=== PATIENT | female | born 1975 | race Caucasian/White ===

== ENCOUNTER 2017-05-25 07:09 | Emergency (ER) | payer MEDICAID ==
[2017-05-25 07:13] VITALS: BP 107/65; PULSE 88; RESP 14; TEMP 98.6; O2SAT 98
--- NOTE | 2017-05-25 07:20 | EDPHY ---
H & P Stated Complaint: rib pain when being arrested Time Seen by Provider: 05/25/17 07:17 HPI/ROS: CHIEF COMPLAINT: Rib pain HISTORY OF PRESENT ILLNESS: The patient presents to the ED with complaints of left-sided rib pain. The patient was in the emergency department last night and registered under a different name. She was here after using methamphetamine. She reportedly was discharged from the emergency department and went and slept on private property where she was found this morning. The police were contacted. She reportedly developed left-sided rib pain which prompted her transfer back to the emergency department. The patient denies history of fall or trauma. She believes that her ribs hurt secondary to sleeping on the hard ground. REVIEW OF SYSTEMS: A comprehensive 10 point review of systems is otherwise negative aside from elements mentioned in the history of present illness. Source: Patient Exam Limitations: No limitations - Personal History LMP (Females 10-55): Unknown Current Tetanus/Diphtheria Vaccine: Unsure Current Tetanus Diphtheria and Acellular Pertussis (TDAP): Unsure - Medical/Surgical History Hx Asthma: No Hx Chronic Respiratory Disease: No Hx Diabetes: No Hx Cardiac Disease: No Hx Renal Disease: No Hx Cirrhosis: No Hx Alcoholism: No Hx HIV/AIDS: No Hx Splenectomy or Spleen Trauma: No Other PMH: DEPRESSION,ANXIETY - Social History Smoking Status: Never smoked - Physical Exam Exam: General Appearance: Alert, no distress Eyes: Pupils equal and round no pallor or injection ENT, Mouth: Mucous membranes moist Respiratory: There are no retractions, lungs are clear to auscultation, tenderness to palpation left anterior chest wall, no subcutaneous emphysema Cardiovascular: Regular rate and rhythm Gastrointestinal: Abdomen is soft and nontender, no masses, bowel sounds normal Neurological: A&O, normal motor function, normal sensory exam, normal cranial nerves Skin: Warm and dry, no rashes, multiple tattoos Musculoskeletal: Neck is supple nontender Extremities: symmetrical, full range of motion Constitutional: Initial Vital Signs Temperature (C) 37 C 05/25/17 07:11 Heart Rate 88 05/25/17 07:11 Respiratory Rate 14 05/25/17 07:11 Blood Pressure 107/65 05/25/17 07:11 O2 Sat (%) 98 05/25/17 07:11 O2 Delivery Mode Room Air Allergies/Adverse Reactions: No Known Allergies Allergy (Verified 07/02/14 18:20) Home Medications: Medication Instructions Recorded FLUoxetine [Prozac 20 MG (RX)] 40 mg PO DAILY 12/06/11 clonazePAM [Klonopin (RX)] 1 mg 03/17/13 clonazePAM [klonoPIN (*)] 1 mg PO BID PRN #18 tab 07/02/14 Medical Decision Making - Diagnostics Imaging Results: Chest x-ray PA/lateral: Images reviewed by myself, negative for rib fracture, infiltrate, hemothorax or pneumothorax. ED Course/Re-evaluation: The patient presents to the ED with complaints of left-sided rib pain. The patient's vital signs are stable. Her pain is reproducible in nature. The patient's chest x-ray demonstrates no evidence of obvious rib fracture, pneumothorax or hemothorax. The patient will be treated conservatively. She is advised to use ibuprofen as needed for pain. She should return to the ED for worsening symptoms or other concerns. Differential Diagnosis: Differential diagnosis considered includes rib fracture, pneumothorax, hemothorax, chest wall contusion Departure - Departure Disposition: Home, Routine, Self-Care Clinical Impression: Chest wall pain Condition: Good Instructions: Chest Wall Pain (ED) Additional Instructions: 1. Take Ibuprofen or Motrin 600 mg by mouth three times a day. 2. Your chest x-ray demonstrates no evidence of a rib fracture or obvious disease. 3. Please follow up with [facility] as recommended. Referrals: [facility],. [Clinic] - As per Instructions
== END 2017-05-25 08:07 | disposition home or self-care (01) ==
LOC: EDUNIT#
DX: R07.89 Other chest pain (principal)

== ENCOUNTER 2017-05-27 14:01 | Emergency (ER) | payer MEDICAID ==
--- NOTE | 2017-05-27 14:15 | EDPHY ---
H & P Smoking Status: Never smoked Time Seen by Provider: 05/27/17 14:05 HPI/ROS: CHIEF COMPLAINT: Suicidal ideation HISTORY OF PRESENT ILLNESS: Patient tells me she was at the [facility] last night for mental health. Today she went to the [facility] and ring the smith for the inpatient behavioral health unit and said "I need ambulance for my mental health issues" and 911 was called. She was brought in by police on a mental health hold for suicidal ideation with plan to jump off a building. Decreased oral intake but otherwise no medical complaints except she feels she might be dehydrated. REVIEW OF SYSTEMS: Eye: no change in vision ENT: no sore throat Cardiac: no chest pain or syncope Pulmonary: no cough or SOB Abdomen: no vomiting, diarrhea, abdominal pain Musculoskeletal: no back pain Skin: no rash Neuro: no headache Constitutional: no fever : no urinary symptoms A comprehensive 10 point review of systems is otherwise negative aside from elements mentioned in the history of present illness. PAST MEDICAL HISTORY: Cholecystectomy, hysterectomy, depression Social history: Tobacco smoker General Appearance: Alert and conversant, cooperative. Eyes: No scleral icterus. ENT, Mouth: Normal mucous membranes. Respiratory: Normal respiratory effort, breath sounds equal, lungs are clear to auscultation. Cardiovascular: Regular rate and rhythm. Gastrointestinal: Abdomen is soft and non tender. Neurological: Alert and oriented x3. Normally conversant. Face symmetric, normal movement and sensation in all extremities. Skin: Warm and dry, no rashes. Musculoskeletal: No peripheral edema and no joint swelling. Psychiatric: Patient is cooperative, flat affect, see HPI. Emergency Department course/MDM: Arrives on a mental health hold. Labs and psychiatric evaluation. Hysterectomy so no test ordered. 1629: The patient had a medical screening evaluation performed. There does not appear to be an acute emergent medical or surgical condition which would preclude psychiatric evaluation at this time. Mental health evaluation is requested at this time. 2100: Signed out to [facility], plan for psych placement. (Sidney Esteves) Constitutional: Initial Vital Signs Temperature (C) 37.0 C 05/27/17 14:21 Heart Rate 118 H 05/27/17 14:21 Respiratory Rate 16 05/27/17 14:21 Blood Pressure 129/93 H 05/27/17 14:21 O2 Sat (%) 97 05/27/17 14:21 O2 Delivery Mode Room Air Allergies/Adverse Reactions: No Known Allergies Allergy (Verified 05/27/17 14:19) Home Medications: Medication Instructions Recorded FLUoxetine [Prozac 20 MG (RX)] 40 mg PO DAILY 12/06/11 clonazePAM [Klonopin (RX)] 1 mg 03/17/13 clonazePAM [klonoPIN (*)] 1 mg PO BID PRN #18 tab 07/02/14 Medical Decision Making ED Course/Re-evaluation: I assumed care of this patient from Dr. Esteves at 9 PM. Her care is transferred to Dr. Osorio at 11:25 PM. Awaiting placement. (Maria E Burns) 0118: Patient has been accepted at [email or web address] in [facility]. Dr. Ferguson. EMTALA filled out. Appropriate transfer will be set up. (Filippo Osorio ) Differential Diagnosis: Differential diagnosis considered for depression including functional and major depression, situational depression, medication side effect, drugs and alcohol abuse. (Sidney Esteves) - Data Points Laboratory Results: Laboratory Results 05/27/17 15:45 05/27/17 15:45 05/27/17 05/27/17 05/27/17 15:45 15:45 14:12 WBC 11.80 10^3/uL H 10^3/uL (3.80-9.50) RBC 4.79 10^6/uL 10^6/uL (4.18-5.33) Hgb 13.5 g/dL g/dL (12.6-16.3) Hct 39.5 % % (38.0-47.0) MCV 82.5 fL fL (81.5-99.8) MCH 28.2 pg pg (27.9-34.1) MCHC 34.2 g/dL g/dL (32.4-36.7) RDW 14.8 % % (11.5-15.2) Plt Count 308 10^3/uL 10^3/uL (150-400) MPV 8.9 fL fL (8.7-11.7) Neut % (Auto) 78.5 % H % (39.3-74.2) Lymph % (Auto) 16.0 % % (15.0-45.0) [place] % (Auto) 4.5 % % (4.5-13.0) Eos % (Auto) 0.2 % L % (0.6-7.6) Baso % (Auto) 0.4 % % (0.3-1.7) Nucleat RBC Rel Count 0.0 % % (0.0-0.2) Absolute Neuts (auto) 9.26 10^3/uL H 10^3/uL (1.70-6.50) Absolute Lymphs (auto) 1.89 10^3/uL 10^3/uL (1.00-3.00) Absolute Monos (auto) 0.53 10^3/uL 10^3/uL (0.30-0.80) Absolute Eos (auto) 0.02 10^3/uL L 10^3/uL (0.03-0.40) Absolute Basos (auto) 0.05 10^3/uL 10^3/uL (0.02-0.10) Absolute Nucleated RBC 0.00 10^3/uL 10^3/uL (0-0.01) Immature Gran % 0.4 % % (0.0-1.1) Immature Gran # 0.05 10^3/uL 10^3/uL (0.00-0.10) Sodium 140 mEq/L mEq/L (134-144) Potassium 3.7 mEq/L mEq/L (3.5-5.2) Chloride 101 mEq/L mEq/L (97-110) Carbon Dioxide 23 mEq/l mEq/l (22-31) Anion Gap 16 mEq/L mEq/L (8-16) BUN 14 mg/dL mg/dL (7-23) Creatinine 0.7 mg/dL mg/dL (0.6-1.0) Estimated GFR > 60 Glucose 81 mg/dL mg/dL (70-100) Calcium 10.2 mg/dL mg/dL (8.5-10.4) Salicylates < 1.0 mg/dL L mg/dL (2.0-20.0) Urine Opiates Screen NEGATIVE (NEGATIVE) Acetaminophen < 10 mcg/mL L mcg/mL (10-30) Urine Barbiturates NEGATIVE (NEGATIVE) Ur Phencyclidine Scrn NEGATIVE (NEGATIVE) Ur Amphetamine Screen NEGATIVE (NEGATIVE) U Benzodiazepines Scrn NEGATIVE (NEGATIVE) Urine Cocaine Screen NEGATIVE (NEGATIVE) U Marijuana (THC) Screen NON-NEGATIVE H (NEGATIVE) Ethyl Alcohol < 10 mg/dL mg/dL (0-10) Medications Given: Discontinued Medications Nicotine (Nicoderm Cq) 21 mg TD EDNOW ONE Stop: 05/27/17 14:20 Last Admin: 05/27/17 15:00 Dose: 21 mg Departure - Departure Disposition: Other Psych, Not Faith Clinical Impression: Severe major depression Condition: Good Instructions: Depression (ED), Suicide Prevention for Adults (ED) Referrals: [facility],. [Clinic] - As per Instructions
[2017-05-27] MEDS ORDERED: NICOTINE 21 MG/24 HR PATCH TD ONE (14:19)
[2017-05-27 16:00] LABS: % IMMATURE GRANULYOCYTES 0.4 % (0.0-1.1); ABSOLUTE IMMATURE GRANULOCYTES 0.05 10^3/uL (0.00-0.10); ADD DIFF? NO; ADD MORPH? NO; ADD SCAN? NO; ATYPICAL LYMPHOCYTE FLAG 10 (0-99); FRAGMENT RBC FLAG 0 (0-99); HEMATOCRIT 39.5 % (38.0-47.0); HEMOGLOBIN 13.5 g/dL (12.6-16.3); LEFT SHIFT FLG 0 (0-99); LIPEMIA HEMOLYSIS FLAG 90 (0-99); MEAN CELL HEMOGLOBIN 28.2 pg (27.9-34.1); MEAN CELL HEMOGLOBIN CONCENTR. 34.2 g/dL (32.4-36.7); MEAN CELL VOLUME 82.5 fL (81.5-99.8); MEAN PLATELET VOLUME 8.9 fL (8.7-11.7); PLATELET CLUMPS FLAG 0 (0-99); PLATELET COUNT 308 10^3/uL (150-400); RED BLOOD CELL COUNT 4.79 10^6/uL (4.18-5.33); RED CELL DISTRIBUTION WIDTH 14.8 % (11.5-15.2)
[2017-05-27 16:08] LABS: ANION GAP 16 mEq/L (8-16); CALCIUM 10.2 mg/dL (8.5-10.4); CARBON DIOXIDE 23 mEq/l (22-31); CHLORIDE 101 mEq/L (97-110); CREATININE 0.7 mg/dL (0.6-1.0); ETHANOL SERUM < 10 mg/dL (0-10); GLOMERULAR FILTRATION RATE > 60; GLUCOSE 81 mg/dL (70-100); POTASSIUM 3.7 mEq/L (3.5-5.2); SALICYLATE < 1.0 mg/dL (2.0-20.0); SODIUM 140 mEq/L (134-144)
[2017-05-27 16:18] VITALS: O2SAT 98
[2017-05-27 23:33] VITALS: TEMP 98.4
[2017-05-28 01:57] VITALS: BP 134/92; PULSE 103; RESP 16
== END 2017-05-28 02:47 ==
DX: F32.2 Major depressive disorder, single episode, severe without psychotic features (principal); F17.200 Nicotine dependence, unspecified, uncomplicated
CPT/HCPCS: 80305; G0480

== ENCOUNTER 2017-06-05 13:15 | Emergency (ER) | payer MEDICAID ==
--- NOTE | 2017-06-05 13:47 | EDPHY ---
H & P Stated Complaint: anxiety Source: Patient Exam Limitations: No limitations - Personal History LMP (Females 10-55): Hysterectomy Current Tetanus/Diphtheria Vaccine: Unsure Current Tetanus Diphtheria and Acellular Pertussis (TDAP): Unsure - Medical/Surgical History Hx Asthma: No Hx Chronic Respiratory Disease: No Hx Diabetes: No Hx Cardiac Disease: No Hx Renal Disease: No Hx Cirrhosis: No Hx Alcoholism: No Hx HIV/AIDS: No Hx Splenectomy or Spleen Trauma: No Other PMH: DEPRESSION,ANXIETY - Social History Smoking Status: Light smoker Time Seen by Provider: 06/05/17 13:45 HPI/ROS: CHIEF COMPLAINT: Anxiety HISTORY OF PRESENT ILLNESS: The patient presents to the ED with complaints of anxiety. She has a history of this is a chronic condition. The patient was recently seen at our emergency department for suicidal ideation. She reportedly was discharged to a psychiatric care facility and possible 0. She was discharged from that facility with Seroquel and Prozac. She was given a bus pass to return to [place]. While the patient specifically denies suicidal ideation. She is worried that she will become suicidal if her "life becomes much worse." The patient denies taking additional medications. She has remote history of using benzodiazepines and pain medications but is been off these medications for years. The patient denies any acute medical complaints. She specifically denies fever, cough, congestion or dysuria. REVIEW OF SYSTEMS: A comprehensive 10 point review of systems is otherwise negative aside from elements mentioned in the history of present illness. (Ziggy Mccracken) - Physical Exam Exam: General Appearance: Alert, no distress Eyes: Pupils equal and round no pallor or injection ENT, Mouth: Mucous membranes moist Respiratory: There are no retractions, lungs are clear to auscultation Cardiovascular: Regular rate and rhythm Gastrointestinal: Abdomen is soft and nontender, no masses, bowel sounds normal Neurological: A&O, normal motor function, normal sensory exam, normal cranial nerves Skin: Warm and dry, no rashes Musculoskeletal: Neck is supple nontender Extremities: symmetrical, full range of motion Psychiatric: Patient is alert and oriented x3, somewhat on cooperative, endorses symptoms of anxiety, denies suicidal thoughts but does endorse depression. The patient's thought content is normal and speech is fluent and under pressured. (Ziggy Mccracken) Constitutional: Initial Vital Signs Temperature (C) 36.7 C 06/05/17 13:19 Heart Rate 85 06/05/17 13:19 Respiratory Rate 18 06/05/17 13:19 Blood Pressure 152/90 H 06/05/17 13:19 O2 Delivery Mode Room Air Allergies/Adverse Reactions: No Known Allergies Allergy (Verified 05/27/17 14:19) Home Medications: Medication Instructions Recorded FLUoxetine [Prozac 20 MG (RX)] 40 mg PO DAILY 12/06/11 Medical Decision Making ED Course/Re-evaluation: The patient has been medically cleared for a voluntary psychiatric evaluation the setting of her thoughts of depression and anxiety and concerns about her safety. She is not actively suicidal but has concerns that she could become that way given her outpatient situation. The patient will be turned over to Dr. sOorio at shift change pending psychiatric assessment disposition. (Ziggy Mccracken) 1926: This patient has been evaluated by mental health. They recommend CSU placement. Patient is voluntary. Not on M1 hold. 0300AM: Patient signed over to Dr. Ely at 3:00 a.m.. Not on m1 hold. Voluntary CSU Placement. (Filippo Osorio) 7:00 a.m.- The patient has remained stable during my shift. We were not able to find placement for the patient. She is here voluntarily and is not on an M1 hold. The mental health team has arrange for taxi to take the patient to the [facility] directly for intake for further mental health care. The patient is in agreement with this plan. She will be discharged from the emergency department. (Fang Ely) Differential Diagnosis: Differential diagnosis considered includes psychosis, depression, anxiety, suicidal ideation (Ziggy Mccracken) - Data Points Laboratory Results: Laboratory Results 06/05/17 14:00 06/05/17 14:00 Departure - Departure Disposition: Home, Routine, Self-Care Clinical Impression: Severe major depression, Anxiety Condition: Good Instructions: Anxiety (ED) Referrals: [facility] [Outside] - As per Instructions
[2017-06-05 14:14] LABS: % IMMATURE GRANULYOCYTES 0.3 % (0.0-1.1); ABSOLUTE IMMATURE GRANULOCYTES 0.03 10^3/uL (0.00-0.10); ADD DIFF? NO; ADD MORPH? NO; ADD SCAN? NO; ATYPICAL LYMPHOCYTE FLAG 20 (0-99); FRAGMENT RBC FLAG 0 (0-99); HEMATOCRIT 38.5 % (38.0-47.0); LEFT SHIFT FLG 0 (0-99); LIPEMIA HEMOLYSIS FLAG 90 (0-99); MEAN CELL HEMOGLOBIN 28.3 pg (27.9-34.1); MEAN CELL HEMOGLOBIN CONCENTR. 33.8 g/dL (32.4-36.7); MEAN CELL VOLUME 83.9 fL (81.5-99.8); PLATELET CLUMPS FLAG 0 (0-99); PLATELET COUNT 270 10^3/uL (150-400); RED BLOOD CELL COUNT 4.59 10^6/uL (4.18-5.33); RED CELL DISTRIBUTION WIDTH 14.6 % (11.5-15.2)
[2017-06-05 14:21] LABS: ANION GAP 12 mEq/L (8-16); CALCIUM 10.1 mg/dL (8.5-10.4); CARBON DIOXIDE 25 mEq/l (22-31); CHLORIDE 106 mEq/L (97-110); CREATININE 0.6 mg/dL (0.6-1.0); ETHANOL SERUM < 10 mg/dL (0-10); GLOMERULAR FILTRATION RATE > 60; GLUCOSE 91 mg/dL (70-100); POTASSIUM 3.9 mEq/L (3.5-5.2); SODIUM 143 mEq/L (134-144)
[2017-06-05 18:53] VITALS: TEMP 98.4
[2017-06-06 07:26] VITALS: BP 120/75; PULSE 101; RESP 18; O2SAT 97
== END 2017-06-06 07:34 | disposition home or self-care (01) ==
LOC: EDUNIT#
DX: F41.8 Other specified anxiety disorders (principal); F32.2 Major depressive disorder, single episode, severe without psychotic features; F17.200 Nicotine dependence, unspecified, uncomplicated
CPT/HCPCS: 80305; G0480